=== PATIENT | female | born 1980 | race Caucasian/White ===

== ENCOUNTER 2017-07-27 18:38 | Emergency (ER) | payer SELFPAY ==
[2017-07-27 18:39] VITALS: BMI 32.0
[2017-07-27 19:12] VITALS: BP 113/54; PULSE 68; RESP 16; TEMP 98; O2SAT 98
== END 2017-07-27 20:25 | disposition home or self-care (01) ==
LOC: H.ER 18:38
DX: M25.562 Pain in left knee (principal)

== ENCOUNTER 2017-11-10 10:49 | Observation (INO) | payer OTHER, SELFPAY ==
[2017-11-10 10:49] VITALS: BMI 32.0
--- NOTE | 2017-11-10 11:27 | ED PDOC ---
HPI: General Adult Time Seen by Provider: 11/10/17 11:27 Chief Complaint (Nursing): Abnormal Labs Chief Complaint (Provider): abnormal labs History Per: Patient Additional Complaint(s): 37-year-old female presents to emergency department for evaluation of anemia. Patient was informed by her primary care doctor that her hemoglobin was 7.0. Patient denies any chest pain or shortness of breath upon arrival but does complain of dizziness and generalized weakness. Patient's states she has history of anemia but has never required transfusion in the past. Patient's states she has history of heavy abnormal periods. PMD: Lavon Loja Past Medical History Reviewed: Historical Data, Nursing Documentation, Vital Signs Vital Signs: Last Vital Signs Temp 98.1 F 11/10/17 11:21 Pulse 65 11/10/17 11:21 Resp 16 11/10/17 11:21 BP 114/65 11/10/17 11:21 Pulse Ox 100 11/10/17 13:03 - Medical History PMH: Anxiety, Hypothyroidism - Surgical History Surgical History: - Family History Family History: States: No Known Family Hx - Living Arrangements Living Arrangements: With Family - Social History Current smoker - smoking cessation education provided: No Alcohol: None Drugs: Denies - Home Medications Home Medications: Ambulatory Orders Medication Instructions Recorded Ascorbic Acid/Collagen Hydr 3 cap PO BID 11/10/17 [Collagen Plus Vit C Capsule] Ferrous Sulfate [Feosol] 2 tab PO TID 11/10/17 - Allergies Allergies/Adverse Reactions: Allergies Allergy/AdvReac Type Severity Reaction Status Date / Time No Known Allergies Allergy Unverified 01/24/14 23:13 Review of Systems ROS Statement: Except As Marked, All Systems Reviewed And Found Negative Constitutional: Positive for: Weakness. Negative for: Fever, Chills Cardiovascular: Negative for: Chest Pain Respiratory: Negative for: Cough, Shortness of Breath, SOB with Exertion Gastrointestinal: Negative for: Nausea, Vomiting, Melena, Hematochezia, Hematemesis Genitourinary Female: Positive for: Vaginal Bleeding (h/o heavy periods, no bleeding at present) Neurological: Positive for: Dizziness. Negative for: Altered Mental Status, Headache Physical Exam - Reviewed Nursing Documentation Reviewed: Yes Vital Signs Reviewed: Yes - Physical Exam Appears: Positive for: Well, Non-toxic, No Acute Distress Skin: Positive for: Normal Color. Negative for: Rash Eye Exam: Positive for: Normal appearance Cardiovascular/Chest: Positive for: Regular Rate, Rhythm Respiratory: Positive for: Normal Breath Sounds. Negative for: Wheezing, Respiratory Distress Gastrointestinal/Abdominal: Positive for: Soft. Negative for: Tenderness, Distended, Guarding Extremity: Positive for: Normal ROM Neurologic/Psych: Positive for: Alert, Oriented - Laboratory Results Result Diagrams: 11/10/17 12:10 11/10/17 12:10 Urine POC: Negative Urine dip results: Negative for: Leukocyte Esterase, Blood, Nitrate, Ketones, Glucose, Bilirubin, Protein - ECG Interpretation Of ECG: NSR 60 bpm, reviewed by PA in ED attending. O2 Sat by Pulse Oximetry: 100 Pulse Ox Interpretation: Normal - Other Rad CXR X-Ray: Interpreted by Me, Viewed By Me X-Ray Interpretation: no acute finding Medical Decision Making Medical Decision Makin37 year old with low hemoglobin Plan: CBC CMP PT PTT Urine dip and test IVF CXR EKG Type and screen Hb 7.5 - patient agrees to transfusion, consent obtained. PMD is Dr. Lavon Loja who does not admit to this ED. Case was d/w Dr. Micthell, medicine road freight conductor who will admit patient. Patient is aware of and agrees with admission. Case was discussed further with hematology road freight conductor Dr. Dan will see patient while admitted. Disposition - Clinical Impression Clinical Impression: Anemia - Patient ED Disposition Is Patient to be Admitted: Yes - Disposition Disposition Time: 15:31 Condition: FAIR - Pt Status Changed To: Hospital Disposition Of: Observation Results - Lab Results Lab Results: 11/10/17 11/10/17 11/10/17 12:10 12:10 12:10 WBC RBC Hgb Hct MCV MCH MCHC RDW Plt Count MPV Neut % (Auto) Lymph % (Auto) Haskell % (Auto) Eos % (Auto) Baso % (Auto) Neut # Lymph # Haskell # Eos # Baso # PT 12.0 INR 1.1 APTT 34.6 Sodium 140 Potassium 4.1 Chloride 103 Carbon Dioxide 24 Anion Gap 17 BUN 13 Creatinine 0.5 L Est GFR ( Amer) > 60 Est GFR (Non-Af Amer) > 60 Random Glucose 86 Calcium 9.6 Total Bilirubin 0.9 AST 29 ALT 43 Alkaline Phosphatase 63 Total Protein 8.4 H Albumin 4.7 Globulin 3.7 Albumin/Globulin Ratio 1.3 Blood Type O POSITIVE Antibody Screen Negative BBK History Checked Patient has bt 11/10/17 12:10 WBC 5.7 RBC 3.62 L Hgb 7.5 L Hct 24.0 L MCV 66.2 L MCH 20.6 L MCHC 31.1 L RDW 21.4 H Plt Count 291 MPV 8.1 Neut % (Auto) 55.9 Lymph % (Auto) 31.0 Haskell % (Auto) 9.3 Eos % (Auto) 3.1 Baso % (Auto) 0.7 Neut # 3.2 Lymph # 1.8 Haskell # 0.5 Eos # 0.2 Baso # 0.0 PT INR APTT Sodium Potassium Chloride Carbon Dioxide Anion Gap BUN Creatinine Est GFR ( Amer) Est GFR (Non-Af Amer) Random Glucose Calcium Total Bilirubin AST ALT Alkaline Phosphatase Total Protein Albumin Globulin Albumin/Globulin Ratio Blood Type Antibody Screen BBK History Checked
[2017-11-10] MEDS ORDERED: Sodium Chloride 0.9% 1,000 ML IV STA (11:28)
[2017-11-10 12:26] LABS: BASO % 0.7 % (0.0-2.0); EOS # 0.2 K/uL (0.0-0.7); EOS % 3.1 % (0.0-4.0); HEMOGLOBIN 7.5 g/dL (12.0-16.0); LYMPH # 1.8 K/uL (1.0-4.3); MEAN CELL VOLUME 66.2 fl (81.0-99.0); MEAN CORPUSCULAR HEMOGLOBIN 20.6 pg (27.0-31.0); MEAN CORPUSCULAR HGB CONC 31.1 g/dL (33.0-37.0); MEAN PLATELET VOLUME 8.1 fl (7.2-11.7); MONO # 0.5 K/uL (0.0-0.8); MONO % 9.3 % (0.0-10.0); NEUT # 3.2 K/uL (1.8-7.0); NEUT % 55.9 % (50.0-75.0); NRBC % 0.1 % (0.0-0.0); RBC 3.62 Mil/uL (3.80-5.20); RED CELL DISTRIBUTION WIDTH 21.4 % (11.5-14.5); WHITE BLOOD COUNT 5.7 K/uL (4.8-10.8)
[2017-11-10 12:38] LABS: INR 1.1 (0.9-1.2); PARTIAL THROMBOPLASTIN TIME 34.6 Seconds (25.6-37.1)
[2017-11-10 12:39] LABS: ALBUMIN 4.7 g/dL (3.5-5.0); ALT/SGPT 43 U/L (9-52); AST/SGOT 29 U/L (14-36); BLOOD UREA NITROGEN 13 mg/dl (7-17); CALCIUM 9.6 mg/dL (8.4-10.2); GFR AFRICAN-AMERICAN > 60; GFR NON-AFRICAN AMERICAN > 60
[2017-11-10 12:42] LABS: ALB/GLOB RATIO 1.3 (1.0-2.1)
--- NOTE | 2017-11-10 12:53 | RAD ---
HISTORY: clearance COMPARISON: No prior. FINDINGS: LUNGS: No active pulmonary disease. PLEURA: No significant pleural effusion identified, no pneumothorax apparent. CARDIOVASCULAR: Normal. OSSEOUS STRUCTURES: No significant abnormalities. VISUALIZED UPPER ABDOMEN: Normal. OTHER FINDINGS: None. IMPRESSION: No active disease.
[2017-11-10 16:16] LABS: IRON 24 ug/dL (37-170)
[2017-11-10 16:25] LABS: TOTAL IRON BINDING CAPACITY 480 ug/dL (250-450)
[2017-11-10 16:30] LABS: % IRON SATURATION 5 % (20-55)
[2017-11-10 16:55] LABS: FERRITIN 2.8 ng/Ml (6.24-137.0)
--- NOTE | 2017-11-10 17:23 | US ---
HISTORY: ANEMIA COMPARISON: None. TECHNIQUE: Sonographic evaluation of the abdomen. FINDINGS: LIVER: Measures 15.3 cm. Patent portal vein. Portal venous flow: Hepatopetal. Unremarkable echogenicity of the liver parenchyma. No mass. No intrahepatic bile duct dilatation. GALLBLADDER: Unremarkable. No gallstones. COMMON BILE DUCT: Measures 3.2 mm. No stones. No dilatation. PANCREAS: Unremarkable as visualized. No mass. No ductal dilatation. RIGHT KIDNEY: Measures 5.3 x 12cm. Normal echogenicity. No calculus, mass, or hydronephrosis. LEFT KIDNEY: Measures 5.8 x 12.4cm. Normal echogenicity. No calculus, mass, or hydronephrosis. SPLEEN: Normal in size and contour. No mass. AORTA: No aneurysmal dilatation. IVC: Unremarkable. OTHER FINDINGS: None. IMPRESSION: Unremarkable abdominal sonogram.
--- NOTE | 2017-11-10 17:24 | US ---
HISTORY: ANEMIA/FIBROID COMPARISON: None available. TECHNIQUE: Transabdominal FINDINGS: UTERUS: Measures 12.2 x 5.1 x 6.3 cm. Fundal sub serosal uterine fibroid, 1.3 x 1.8 x 2.0 cm. No other mass identified. ENDOMETRIUM: Measures 8 mm in diameter. Unremarkable. CERVIX: No cervical abnormality identified. RIGHT OVARY: Measures 3.0 x 2.2 x 1.2 cm. No solid mass. Normal flow. 2.1 cm physiologic cyst. LEFT OVARY: Measures 2.9 x 2.0 x 2.3 cm. No solid mass. Normal flow. FREE FLUID: No significant free fluid noted. OTHER FINDINGS: None. IMPRESSION: Fundal sub serosal 2.0 cm uterine fibroid. 2.1 cm right ovarian simple cyst, presumed physiologic.
--- NOTE | 2017-11-10 17:45 | CARD ---
APPROVED REPORT EKG Measurement Heart [id number] <Conclusion> Sinus rhythm normal ECG
--- NOTE | 2017-11-10 20:19 | CP.PCM.CON ---
History of Present Illness - History of Present Illness History of Present Illness: 37 year old female with a history of menorrhagia and chronic iron deficiency anemia, admitted with symptomatic iron deficiency anemia. The patient reports to having blood work done by her PMD and told to come to the ER for low hgb. She notes to increasing fatigue but denies shortness of breath and chest pain. She notes her periods have worsened after she had her twins. She was placed on oral iron but has not been compliant. She denies other abbnormal bleeding and bruising. She is currently receiving PRBC transfusion and notes to feeling better. Past medical history: menorrhagia, iron deficiency anemia Past surgical history: Family history: Denies hematologic and oncologic problems Social history: Denies tobacco, social alcohol, denies illicit drug use. Allergies: NKA Review of systems: All remaining review of systems including HEENT, cardiovascular, respiratory, gastrointestinal, genitourinary, musculoskeletal, dermatologic, neurologic, and psychiatric are negative unless mentioned in the HPI. Past Patient History - Past Social History Smoking Status: Never Smoked - ENDOCRINE/METABOLIC Hx Endocrine Disorders: Yes Hx Hypothyroidism: Yes - HEMATOLOGICAL/ONCOLOGICAL Hx Blood Disorders: Yes Hx Anemia: Yes Hx Blood Transfusions: No - PSYCHIATRIC Hx Anxiety: Yes Hx Substance Use: No - SURGICAL HISTORY Hx Section: Yes - ANESTHESIA Hx Anesthesia: Yes Hx Anesthesia Reactions: No Meds Allergies/Adverse Reactions: Allergies Allergy/AdvReac Type Severity Reaction Status Date / Time No Known Allergies Allergy Unverified 01/24/14 23:13 Physical Exam - Head Exam Head Exam: ATRAUMATIC - Eye Exam Eye Exam: Normal appearance - ENT Exam ENT Exam: Mucous Membranes Dry - Respiratory Exam Respiratory Exam: NORMAL BREATHING PATTERN - Cardiovascular Exam Cardiovascular Exam: +S1, +S2 - GI/Abdominal Exam GI & Abdominal Exam: Normal Bowel Sounds - Extremities Exam Extremities exam: Positive for: normal inspection - Neurological Exam Neurological exam: Oriented x3 - Psychiatric Exam Psychiatric exam: Normal Affect, Normal Mood - Skin Skin Exam: Warm Results - Vital Signs Recent Vital Signs: Last Vital Signs Temp 99 F 11/10/17 19:18 Pulse 59 L 11/10/17 19:18 Resp 20 11/10/17 19:18 BP 106/69 11/10/17 19:18 Pulse Ox 100 11/10/17 19:18 - Labs Result Diagrams: 11/10/17 12:10 11/10/17 12:10 Labs: Laboratory Results - last 24 hr 11/10/17 11/10/17 11/10/17 12:10 12:10 12:10 WBC 5.7 RBC 3.62 L Hgb 7.5 L Hct 24.0 L MCV 66.2 L MCH 20.6 L MCHC 31.1 L RDW 21.4 H Plt Count 291 MPV 8.1 Neut % (Auto) 55.9 Lymph % (Auto) 31.0 Josephine % (Auto) 9.3 Eos % (Auto) 3.1 Baso % (Auto) 0.7 Neut # 3.2 Lymph # 1.8 Josephine # 0.5 Eos # 0.2 Baso # 0.0 PT 12.0 INR 1.1 APTT 34.6 Sodium 140 Potassium 4.1 Chloride 103 Carbon Dioxide 24 Anion Gap 17 BUN 13 Creatinine 0.5 L Est GFR ( Amer) > 60 Est GFR (Non-Af Amer) > 60 Random Glucose 86 Calcium 9.6 Iron TIBC % Saturation Ferritin Total Bilirubin 0.9 AST 29 ALT 43 Alkaline Phosphatase 63 Troponin I Total Protein 8.4 H Albumin 4.7 Globulin 3.7 Albumin/Globulin Ratio 1.3 Vitamin B12 Blood Type Antibody Screen Crossmatch BBK History Checked 11/10/17 11/10/17 11/10/17 12:10 15:50 15:50 WBC RBC Hgb Hct MCV MCH MCHC RDW Plt Count MPV Neut % (Auto) Lymph % (Auto) Josephine % (Auto) Eos % (Auto) Baso % (Auto) Neut # Lymph # Josephine # Eos # Baso # PT INR APTT Sodium Potassium Chloride Carbon Dioxide Anion Gap BUN Creatinine Est GFR ( Amer) Est GFR (Non-Af Amer) Random Glucose Calcium Iron TIBC % Saturation Ferritin 2.8 L Total Bilirubin AST ALT Alkaline Phosphatase Troponin I < 0.0120 Total Protein Albumin Globulin Albumin/Globulin Ratio Vitamin B12 658 Blood Type O POSITIVE Antibody Screen Negative Crossmatch See Detail BBK History Checked Patient has bt 11/10/17 15:50 WBC RBC Hgb Hct MCV MCH MCHC RDW Plt Count MPV Neut % (Auto) Lymph % (Auto) Josephine % (Auto) Eos % (Auto) Baso % (Auto) Neut # Lymph # Josephine # Eos # Baso # PT INR APTT Sodium Potassium Chloride Carbon Dioxide Anion Gap BUN Creatinine Est GFR ( Amer) Est GFR (Non-Af Amer) Random Glucose Calcium Iron 24 L TIBC 480 H % Saturation 5 L Ferritin Total Bilirubin AST ALT Alkaline Phosphatase Troponin I Total Protein Albumin Globulin Albumin/Globulin Ratio Vitamin B12 Blood Type Antibody Screen Crossmatch BBK History Checked Assessment & Plan (1) Anemia Assessment and Plan: secondary to menorrhagia causing iron deficiency receiving 2U PRBC will start IV iron after PRBC transfusion pelvic US shows uterine fibroid outpatient iron supplementation and [employer] f/u Thank you for this interesting consult. Status: Acute
[2017-11-10 21:25] VITALS: RESP 18
[2017-11-10 21:36] LABS: FOLATE 19.6 ng/mL
--- NOTE | 2017-11-11 00:34 | HP ---
HISTORY OF PRESENT ILLNESS: Ms. Saji Mitchell is a 37-year-old female, who was referred to the emergency room by her primary care doctor because of severe anemia noted on blood work drawn incidentally in the office 24 hours prior to presentation. She had a hemoglobin of 7 in the office and then sent to the emergency room where her hemoglobin was repeated and was 7.5. She complains of feeling dizzy and feeling tired for the past several months prior to presentation, also admits that she has a very heavy period. PAST MEDICAL HISTORY: Otherwise, past medical history is unrevealing. SOCIAL HISTORY: She does not smoke or drink and lives at home. REVIEW OF SYSTEMS: Essentially unremarkable except for weakness and generalized malaise. FAMILY HISTORY: Unremarkable. PHYSICAL EXAMINATION: GENERAL: The patient is alert and oriented, appears to be comfortable while lying in bed. VITAL SIGNS: Blood pressure 114/65, pulse of 65, respiratory rate is 18, O2 sat 100% on room air. SKIN: Shows fair turgor. HEENT: Pupils equal and reactive to light and accommodation. NECK: JVP flat. LUNGS: Clear. HEART: Regular. No murmurs or gallop. ABDOMEN: Soft, nontender. No organomegaly. EXTREMITIES: Show no edema or cyanosis. CENTRAL NERVOUS SYSTEM: Grossly intact. LABORATORY DATA: Remarkable for hemoglobin of 7.5, WBC 5.7, platelet count 291,000. PT 12, INR 1.1. Chemistry: Sodium 140, potassium 4.1, BUN 13, creatinine 0.5. Chest x-ray: No acute cardiopulmonary pathology. EKG, official report pending. IMPRESSION: Severe symptomatic anemia. PLAN: Start the patient on packed red blood cells. Hematology evaluation. Anemia workup. Further therapy will depend on findings. Binu Mitchell MD
--- NOTE | 2017-11-11 10:17 | CP.PCM.DIS ---
Provider - Provider Date of Admission: 11/10/17 14:28 Attending physician: Binu Mitchell MD Time Spent in preparation of Discharge (in minutes): 35 Diagnosis - Discharge Diagnosis (1) Uterine fibroid Status: Acute (2) Anemia Status: Acute Hospital Course - Lab Results Lab Results: Most Recent Lab Values WBC 5.7 K/uL (4.8-10.8) 11/10/17 12:10 RBC 3.62 Mil/uL (3.80-5.20) L 11/10/17 12:10 Hgb 7.5 g/dL (12.0-16.0) L 11/10/17 12:10 Hct 24.0 % (34.0-47.0) L 11/10/17 12:10 MCV 66.2 fl (81.0-99.0) L 11/10/17 12:10 MCH 20.6 pg (27.0-31.0) L 11/10/17 12:10 MCHC 31.1 g/dL (33.0-37.0) L 11/10/17 12:10 RDW 21.4 % (11.5-14.5) H 11/10/17 12:10 Plt Count 291 K/uL (130-400) 11/10/17 12:10 MPV 8.1 fl (7.2-11.7) 11/10/17 12:10 Neut % (Auto) 55.9 % (50.0-75.0) 11/10/17 12:10 Lymph % (Auto) 31.0 % (20.0-40.0) 11/10/17 12:10 Grady % (Auto) 9.3 % (0.0-10.0) 11/10/17 12:10 Eos % (Auto) 3.1 % (0.0-4.0) 11/10/17 12:10 Baso % (Auto) 0.7 % (0.0-2.0) 11/10/17 12:10 Neut # 3.2 K/uL (1.8-7.0) 11/10/17 12:10 Lymph # 1.8 K/uL (1.0-4.3) 11/10/17 12:10 Grady # 0.5 K/uL (0.0-0.8) 11/10/17 12:10 Eos # 0.2 K/uL (0.0-0.7) 11/10/17 12:10 Baso # 0.0 K/uL (0.0-0.2) 11/10/17 12:10 PT 12.0 Seconds (9.8-13.1) 11/10/17 12:10 INR 1.1 (0.9-1.2) 11/10/17 12:10 APTT 34.6 Seconds (25.6-37.1) 11/10/17 12:10 Sodium 140 mmol/l (132-148) 11/10/17 12:10 Potassium 4.1 MMOL/L (3.6-5.0) 11/10/17 12:10 Chloride 103 mmol/L (98-107) 11/10/17 12:10 Carbon Dioxide 24 mmol/L (22-30) 11/10/17 12:10 Anion Gap 17 (10-20) 11/10/17 12:10 BUN 13 mg/dl (7-17) 11/10/17 12:10 Creatinine 0.5 mg/dl (0.7-1.2) L 11/10/17 12:10 Est GFR ( Amer) > 60 11/10/17 12:10 Est GFR (Non-Af Amer) > 60 11/10/17 12:10 Random Glucose 86 mg/dL (65-105) 11/10/17 12:10 Calcium 9.6 mg/dL (8.4-10.2) 11/10/17 12:10 Iron 24 ug/dL (37-170) L 11/10/17 15:50 TIBC 480 ug/dL (250-450) H 11/10/17 15:50 % Saturation 5 % (20-55) L 11/10/17 15:50 Ferritin 2.8 ng/Ml (6.24-137.0) L 11/10/17 15:50 Total Bilirubin 0.9 mg/dl (0.2-1.3) 11/10/17 12:10 AST 29 U/L (14-36) 11/10/17 12:10 ALT 43 U/L (9-52) 11/10/17 12:10 Alkaline Phosphatase 63 U/L (38-126) 11/10/17 12:10 Troponin I < 0.0120 ng/mL (0.00-0.120) 11/10/17 15:50 Total Protein 8.4 G/DL (6.3-8.2) H 11/10/17 12:10 Albumin 4.7 g/dL (3.5-5.0) 11/10/17 12:10 Globulin 3.7 gm/dL (2.2-3.9) 11/10/17 12:10 Albumin/Globulin Ratio 1.3 (1.0-2.1) 11/10/17 12:10 Vitamin B12 658 pg/mL (239-931) 11/10/17 15:50 Folate 19.6 ng/mL 11/10/17 15:50 Blood Type O POSITIVE 11/10/17 12:10 Antibody Screen Negative 11/10/17 12:10 Crossmatch See Detail 11/10/17 12:10 BBK History Checked Patient has bt 11/10/17 12:10 - Hospital Course Hospital Course: CLINICALLY IMPROVED Discharge Exam - Head Exam Head Exam: ATRAUMATIC - Eye Exam Eye Exam: EOMI, Normal appearance, PERRL Pupil Exam: NORMAL ACCOMODATION, PERRL - GI/Abdominal Exam GI & Abdominal Exam: Normal Bowel Sounds - Rectal Exam Rectal Exam: NORMAL INSPECTION - Neurological Exam Neurological exam: Alert, CN II-XII Intact, Normal Gait, Oriented x3, Reflexes Normal - Psychiatric Exam Psychiatric exam: Normal Affect, Normal Mood - Skin Skin Exam: Dry, Intact, Normal Color, Warm Discharge Plan - Follow Up Plan Condition: FAIR Disposition: HOME/ ROUTINE Patient education suggested?: Yes Additional Instructions: DISCHARGE TODAY AFTER TRANSFUSION OF IRON AND REPEAT CBC
[2017-11-11 11:11] LABS: BASO % 0.6 % (0.0-2.0); EOS # 0.2 K/uL (0.0-0.7); EOS % 2.9 % (0.0-4.0); HEMOGLOBIN 9.5 g/dL (12.0-16.0); LYMPH # 1.5 K/uL (1.0-4.3); LYMPH % 26.2 % (20.0-40.0); MEAN CELL VOLUME 70.4 fl (81.0-99.0); MEAN CORPUSCULAR HEMOGLOBIN 22.5 pg (27.0-31.0); MEAN CORPUSCULAR HGB CONC 31.9 g/dL (33.0-37.0); MEAN PLATELET VOLUME 8.2 fl (7.2-11.7); MONO # 0.5 K/uL (0.0-0.8); MONO % 9.8 % (0.0-10.0); NEUT # 3.4 K/uL (1.8-7.0); NEUT % 60.5 % (50.0-75.0); NRBC % 0.1 % (0.0-0.0); RBC 4.21 Mil/uL (3.80-5.20); WHITE BLOOD COUNT 5.6 K/uL (4.8-10.8)
[2017-11-11 12:08] VITALS: BP 100/61; PULSE 68; TEMP 98.6; O2SAT 100
== END 2017-11-11 14:30 | disposition home or self-care (01) ==
LOC: H.ER 10:49 → H.ERHOLD 14:28 → H.TEL 18:17
PROVIDERS: ADMIT Internal Medicine Pulmonary Disease; ATTEND Internal Medicine Pulmonary Disease
DX: D50.0 Iron deficiency anemia secondary to blood loss (chronic) (principal); N92.0 Excessive and frequent menstruation with regular cycle; D25.9 Leiomyoma of uterus, unspecified; E03.9 Hypothyroidism, unspecified; F41.9 Anxiety disorder, unspecified; Z91.19 Patient's noncompliance with other medical treatment and regimen
CPT/HCPCS: 36415; 36430; 71045; 76700; 76856; 80053; 81025; 82607; 82728; 82746; 83540; 83550; 84484; 85025; 85610; 85730; 86850; 86900; 86920; 93005; 99285; G0378; J1756; J7040; P9051